=== PATIENT | male | born 1980 | race Caucasian/White ===

== ENCOUNTER 2016-06-25 22:40 | Emergency (ER) | payer BC ==
[~2016-06-25] VITALS: Ht 165.1 cm; Wt 88.5 kg
--- NOTE | 2016-06-25 23:20 | NUR ---
PT IN C/O CHEST PAIN, NOW 3-06/25..EKG DONE WITH NSR.SEEN AND EXAMINED BY ERMD. BLOOD DRAWN.
--- NOTE | 2016-06-25 23:27 | NUR ---
PT IN WITH CHEST PAIN, 3-4 /10 AT PRESENT, EKG DONE.
[2016-06-26 00:03] LABS: CALCIUM 9.3 mg/dL (8.5-10.1); CREATININE 1.1 mg/dL (0.6-1.3); POTASSIUM 4.4 mmol/L (3.5-5.1)
[2016-06-26 00:38] LABS: BASOPHILS # (AUTO) 0.1 K/uL (0.0-0.2); BASOPHILS % (AUTO) 0.9 % (0.0-2.0); EOSINOPHILS # (AUTO) 0.3 K/uL (0.0-0.7); EOSINOPHILS % (AUTO) 2.7 % (0.0-7.0); HEMATOCRIT 44.6 % (40.0-50.0); HEMOGLOBIN 15.6 g/dL (14.0-18.0); LYMPHOCYTES % (AUTO) 30.8 % (20.5-51.5); MEAN CORPUSCULAR HEMOGLOBIN 29.2 uug (27.0-31.0); MEAN CORPUSCULAR HGB CONC 35 g/dL (32.0-37.0); MEAN CORPUSCULAR VOLUME 83.8 fL (82.0-92.0); MONOCYTES # (AUTO) 0.8 K/uL (0.1-1.30); NEUTROPHILS # (AUTO) 5.6 K/uL (1.8-8.9); NEUTROPHILS % (AUTO) 57.6 % (38.5-71.5); PLATELET COUNT (AUTO) 258 K/uL (150-450); RED BLOOD CELL COUNT(AUTO) 5.32 MIL/uL (4.70-6.10); RED CELL DISTRIBUTION WIDTH 12.7 % (11.5-14.5); WHITE BLOOD COUNT (AUTO) 9.8 K/uL (4.0-11.2)
--- NOTE | 2016-06-26 01:25 | NUR ---
ALL RESULTS IN, ACI GIVEN TO PT , DISCHARGE AMBULATORY IN STABLE CONDITION.
[2016-06-26 01:31] VITALS: BP 129/80
== END 2016-06-26 01:33 | disposition home or self-care (01) ==
LOC: ER 22:43
DX: R07.89 Other chest pain (principal)
CPT/HCPCS: 36415; 71010; 80048; 84484; 85025; 85730; 93005; 99285; A4663; 70030-TC